=== PATIENT | male | born 1985 | race Caucasian/White ===

== ENCOUNTER 2019-05-08 18:05 | Emergency (ER) | payer OTHER, SELFPAY ==
[2019-05-08 18:07] VITALS: BP 126/78; PULSE 62; RESP 16; TEMP 36.9; O2SAT 97; BMI 28.3
--- NOTE | 2019-05-08 19:47 | CT_ITS ---
STUDY: CT ABDOMEN AND PELVIS WITHOUT CONTRAST REASON FOR EXAM: Male, 33 years old. RLQ PAIN, HERNIA RADIATION DOSAGE (If Supplied By Facility): CTDIvol = ( 13.61 ) mGy, DLP = ( 960.34 ) mGycm TECHNIQUE: Transaxial images were obtained from the dome of the diaphragm to the symphysis pubis without oral contrast, and without intravenous contrast. Sagittal and coronal images were reconstructed. Individualized dose optimization techniques were used for this CT. COMPARISON: None. FINDINGS: The visualized lung bases are unremarkable. The visualized portions of the heart are within normal limits. Normal liver. Normal gallbladder and extrahepatic biliary system. Normal spleen. Normal pancreas. Normal bilateral adrenal glands. Normal right kidney. Normal left kidney. Normal visualized stomach. Normal small intestine. Normal colon. The appendix is visualized and appears normal. Normal abdominal aorta. Normal inferior vena cava. Normal retroperitoneum. Retroaortic left renal vein. Normal urinary bladder. Multiple prominent right inguinal lymph nodes with subcutaneous stranding. The largest measures 3.1 x 1.8 cm. Normal abdominal wall. Normal osseous structures. CT/Abdomen/Pelvis W IV Cont ONLY IMPRESSION: Pathologic right inguinal lymphadenopathy and inflammatory changes. Correlate with physical exam right lower extremity. Otherwise unremarkable CT abdomen and pelvis. Electronically Signed: Finesse Ngo MD at 20:58 EST , Service support ,
[2019-05-08 20:06] LABS: Absolute Lymphocyte Count 1.75 X10^3/uL (0.83-4.51); Absolute Neutrophil Count 4.6 X10^3/uL (2.0-7.7); Basophil# 0.05 X10^3/uL; Basophil% 0.7 % (0-1); Eosinophil# 0.16 X10^3/uL; Eosinophils% 2.2 % (0-5); Hematocrit 40.7 % (40-54); Hemoglobin 13.4 g/dL (13.0-16.5); Lymphocyte # 1.75 X10^3/ul (4.0); Lymphocyte % 23.6 % (19-41); Mean Corp Hgb Conc 32.9 g/dL (32-36); Mean Corpuscular Hgb 28.5 pg (27.0-32.0); Mean Corpuscular Volume 86.4 fL (80-94); Mean Platelet Vol. 10.5 fl (6.2-12.0); Monocyte# 0.88 X10^3/uL; Monocyte% 11.9 % (0-10); NRBC Flagged by Analyzer 0 % (0-5); Neutrophil # 4.55 X10^3/uL (2.7-7.7); Neutrophil % 61.5 % (47-70); Platelet Count 225 K/mm3 (150-450); RBC Distribution Width SD 38.1 fl (35.1-43.9); Red Blood Count 4.71 M/mm3 (4.6-6.2); White Blood Count 7.4 K/mm3 (4.4-11.0)
[2019-05-08 20:22] LABS: ALB/GLOB Ratio 0.9 RATIO (0.9-2.4); AST(SGOT) 17 U/L (15-37); Alanine Aminotransfer ALT/SGPT 20 U/L (16-61); Albumin, Serum 3.6 g/dL (3.2-5.0); Alkaline Phosphatase 64 U/L (45-117); Anion Gap 3 (5-15); BUN 12 mg/dL (7-18); BUN/Creat Ratio 11.4 RATIO (10-20); Calcium,Total 8.9 mg/dL (8.5-10.1); Chloride 108 mmol/L (98-107); Creatinine, Serum 1.05 mg/dL (0.70-1.30); EST Glomerular Filtration Rate 86 mL/min (>60); Est Glom Filt Rate - Afr Amer 104 mL/min (>60); Estimated Creatinine Clearance 112.03 ml/min; Globulin 3.9 g/dL (2.2-4.2); Glucose 93 mg/dL (74-106); Protein, Total 7.5 g/dL (6.4-8.2); Sodium Level 142 mmol/L (136-145)
[2019-05-08 22:35] LABS: Bacteria 0 SEEN /hpf (None Seen); Mucous, Urine 0 SEEN /hpf (<or=2+); Red Blood Cells-Urine 0 SEEN /hpf (0-5); White Blood Cells 0 SEEN /hpf (0-5)
[2019-05-08 22:36] LABS: Color, Urine Yellow (Yellow); Glucose, Dipstick Normal (Normal); Ketone-Dipstick Negative (Negative); Leukocyte Esterase-Dipstick Negative /ul (Negative); Nitrite-Dipstick Negative (Negative); Occult Blood-Urine Negative /ul (Negative); Protein-Dipstick Negative (Negative); Urine Bilirubin Dipstick Negative (Negative); Urine Clarity Clear (Clear); Urine Urobilinogen Normal (Normal)
[2019-05-08 22:42] LABS: Squamous Epithelial Cells - UA 0-5 SEEN /hpf (0-5)
--- NOTE | 2019-05-08 22:48 | ED.DCSUM_ITS ---
History of Present Illness Chief Complaint: Abd Pain Informant: Patient Onset: Days Context: Gradual Onset Timing: Continuous Narrative: Patient is a 33-year-old male with no significant past medical history presenting with right groin pain. He states is been present for the past 4 days. He states that constant and irritating. Intermittently it is sharp and there is a hard spot that he feels bulging out. He denies any associated nausea or vomiting. He had normal bowel movements. He saw his PCP today who was concerned about a hernia and referred him to surgery. He would he call to make an appointment for tomorrow surgery wanted him to be evaluated in the ER first. Therefore patient came to the ER. Patient denies any fever chills. Denies any testicular pain. He denies any urinary symptoms. He denies any wounds or skin changes. Past Medical History - Allergies and Home Meds Allergies/Adverse Reactions: Allergies acetaminophen [From Vicodin] Allergy (Verified 05/08/19 18:07) Nausea/Vom/Diarrhea hydrocodone [From Vicodin] Allergy (Verified 05/08/19 18:07) Nausea/Vom/Diarrhea Primary Care Physician: Corey Cabrera [Primary Care Provider] - Past Medical History: None Surgical History: noncontributory Smoking Status: Never smoker Alcohol: None Drugs: None Review of Systems General: Denies: Chills, Fever, Sweats Eyes: Denies: Visual changes - bilaterally, Diplopia ENT: Denies: Rhinorrhea, Sore throat Cardiovascular: Denies: Chest pain, Palpitations Respiratory: Denies: Dyspnea, Cough, Dyspnea on exertion Gastrointestinal: Denies: Abdominal pain, Nausea, Vomiting, Diarrhea, Melena, Hematochezia Genitourinary: Reports: - - right groin pain and swelling . Denies: Dysuria, Hematuria, Frequency Musculoskeletal: Denies: Back pain, Extremity Pain Skin: Denies: Rash, Wounds Neurological: Denies: Headache, Weakness, Numbness Physical Exam Inital Vital Signs reviewed: Yes General: Well nourished, Well developed, No Acute Distress Head: Normocephalic, Atraumatic Eyes: Perrl, EOMI ENT: Moist mucous membranes, No rhinorrhea Neck: Supple, Nontender Cardiovascular: Regular rate, Regular rhythm, No murmurs Respiratory: No distress, CTA bilaterally, Chest nontender Abdomen: Soft, Nontender, Nondistended, Normal bowel sounds : - - And, no testicular pain, swelling or penile lesions noted. No direct hernia noted. Patient does have a very tender area of swelling superior and medial to the inguinal ligament. There is no associated erythema or drainage. Back: Nontender, Normal Inspection. Negative for: CVA tenderness Extremities: Nontender, No edema Skin: Normal color, No rash, - - No wounds noted on the right lower extremity specifically Neurological: Alert, Oriented x3, Cranial nerves II-XII grossly intact, Normal Strength, Normal Sensation Psychological: Normal affect, Normal Mood Diagnostic/Tx/Re-eval Clinical Impression(s) from Imaging Studies Abdomen/Pelvis CT 05/08/19 19:47 IMPRESSION: Pathologic right inguinal lymphadenopathy and inflammatory changes. Correlate with physical exam right lower extremity. Otherwise unremarkable CT abdomen and pelvis. Electronically Signed: Finesse Ngo MD at 20:58 EST , Service support , Laboratory Data 05/08/19 05/08/19 05/08/19 19:53 19:53 22:25 WBC 7.4 RBC 4.71 Hgb 13.4 Hct 40.7 MCV 86.4 MCH 28.5 MCHC 32.9 RDW Std Deviation 38.1 RDW Coeff of Gerardo 12.0 Plt Count 225 MPV 10.5 Immature Gran % (Auto) 0.100 Neut % (Auto) 61.5 Lymph % (Auto) 23.6 [place] % (Auto) 11.9 H Eos % (Auto) 2.2 Baso % (Auto) 0.7 Absolute Neuts (auto) 4.6 Absolute Lymphs (auto) 1.75 Nucleated RBC % 0 Sodium 142 Potassium 4.0 Chloride 108 H Carbon Dioxide 31.0 Anion Gap 3 L BUN 12 Creatinine 1.05 Estim Creat Clear Calc 112.03 Est GFR (MDRD) Af Amer 104 Est GFR (MDRD) Non-Af 86 BUN/Creatinine Ratio 11.4 Glucose 93 Calcium 8.9 Total Bilirubin 0.10 L AST 17 ALT 20 Alkaline Phosphatase 64 Total Protein 7.5 Albumin 3.6 Globulin 3.9 Albumin/Globulin Ratio 0.9 Urine Color Yellow Urine Clarity Clear Urine pH 8.0 Ur Specific [place] 1.010 Urine Protein Negative Urine Glucose (UA) Normal Urine Ketones Negative Urine Occult Blood Negative Urine Nitrite Negative Urine Bilirubin Negative Urine Urobilinogen Normal Ur Leukocyte Esterase Negative Urine RBC 0 SEEN Urine WBC 0 SEEN Ur Squamous Epith Cells 0-5 SEEN Urine Bacteria 0 SEEN Urine Mucus 0 SEEN - Medical Decision Making Patient is evaluated for concern of hernia secondary to pain and swelling of his right groin area. Blood work is largely normal including CBC, urinalysis and BMP. CT of the abdomen pelvis with IV contrast does not show a hernia but does show pathologic adenopathy in the area of his tenderness. I did discuss the case with surgery on-call, Dr. Camacho who feels that it is nothing surgical at this time. He will be started on Keflex and NSAIDs instructed to follow-up with his primary care doctor. Patient is counseled that should this persist he might eventually require a biopsy. Patient not have any wounds or cellulitic changes of the right lower extremity. He is not have any symptoms consistent with an STI. Patient is counseled that this could be inflammatory, viral, bacterial or malignant. He is counseled the importance of outpatient follow-up with his PCP. He is given Toradol and first dose of Keflex in the emergency room. Patient is counseled on signs and symptoms requiring return to the emergency room. Patient verbalizes agreement and understand this plan. Patient discharged home in stable and improved condition. ED Disposition - Plan for ED Patient: Disposition: Home or Assisted Living Diagnosis: Inguinal lymphadenopathy Instructions: Lymphangitis Prescriptions: Cephalexin [Keflex] 500 mg PO Q8 #21 cap Prescription Printed Ibuprofen [Motrin] 600 mg PO Q6H PRN PRN #20 tab PRN Reason: Pain/Inflammation Prescription Printed Referrals: Corey Cabrera [Primary Care Provider] - Additional Instructions: You do not have a hernia. Your CT shows an inflamed lymph node. This appears to be the cause of your pain. You were placed on antibiotics to see if this helps as well as anti-inflammatories. Please return the emergency room if you develop fever, worsening swelling of your leg or significant pain. Please follow-up with your primary care doctor. If the antibiotics do not help with the swelling does not go down you might require a biopsy.
[2019-05-08] MEDS: Cephalexin 250 MG Capsule 500 MG PO (23:07)
[2019-05-08] MEDS: Ketorolac 15 MG/ML Vial IV (23:07)
[2019-05-08 23:13] VITALS: BP 134/82; RESP 16
== END 2019-05-08 23:15 | disposition home or self-care (01) ==
PROVIDERS: Emergency Provider Emergency Medicine; Family Provider Internal Medicine; PCP Internal Medicine
DX: R59.9 Enlarged lymph nodes, unspecified (principal); R10.31 Right lower quadrant pain; Z88.5 Allergy status to narcotic agent
CPT/HCPCS: 74177; 80053; 81001; 85025; 96374; 99283; Q9967; A4216

== ENCOUNTER 2020-03-15 18:37 | Emergency (ER) | payer OTHER, SELFPAY ==
[2020-03-15 18:39] VITALS: BP 133/86; PULSE 70; RESP 15; TEMP 36.3; O2SAT 99; BMI 28.3
--- NOTE | 2020-03-15 19:28 | ED.DCSUM_ITS ---
History of Present Illness Chief Complaint: Dizziness Informant: Patient Onset: Today Narrative: Patient presents with sudden dizziness with room spinning 3 PM after awakening. He works third shift. Diagnosed with Covid 15 days ago with just a cough and sore throat at that time. He had myalgias. Symptoms all recovered. No headache. No history of similar. No past medical history. Nausea without vomiting. Symptoms worse with head turning. Past Medical History - Allergies and Home Meds Allergies/Adverse Reactions: Allergies acetaminophen [From Vicodin] Allergy (Verified 03/15/20 18:39) Nausea/Vom/Diarrhea hydrocodone [From Vicodin] Allergy (Verified 03/15/20 18:39) Nausea/Vom/Diarrhea Primary Care Physician: Corey Cabrera MD [Primary Care Provider] - Past Medical History: - - Covid 19 infection Surgical History: noncontributory Smoking Status: Never smoker Review of Systems General: Denies: Chills, Fever, Sweats Eyes: Denies: Visual changes - bilaterally, Diplopia ENT: Denies: Rhinorrhea, Sore throat Cardiovascular: Denies: Chest pain, Palpitations Respiratory: Denies: Dyspnea, Cough, Dyspnea on exertion Gastrointestinal: Denies: Abdominal pain, Nausea, Vomiting, Diarrhea, Melena, Hematochezia Genitourinary: Denies: Dysuria, Hematuria, Frequency Musculoskeletal: Denies: Back pain, Extremity Pain Skin: Denies: Rash, Wounds Neurological: Reports: - - Vertigo. Denies: Headache, Weakness, Numbness Physical Exam Vital Signs/Narrative: Vital Signs Temp Pulse Resp BP Pulse Ox 03/15/20 18:39 97.4 F L 70 15 133/86 H 99 Inital Vital Signs reviewed: Yes General: Well nourished, Well developed, No Acute Distress Head: Normocephalic, Atraumatic Eyes: Perrl, EOMI, - - no nystagmus. ENT: Moist mucous membranes, No rhinorrhea Neck: Supple, Nontender Cardiovascular: Regular rate, Regular rhythm, No murmurs Respiratory: No distress, CTA bilaterally, Chest nontender Abdomen: Soft, Nontender, Nondistended, Normal bowel sounds Back: Nontender, Normal Inspection Extremities: Nontender, No edema Skin: Normal color, No rash Neurological: Alert, Oriented x3, Cranial nerves II-XII grossly intact, Normal Strength, Normal Sensation Psychological: Normal affect, Normal Mood Diagnostic/Tx/Re-eval - Medical Decision Making Clinical Impression(s) from Imaging Studies Brain CT 03/15/20 19:30 IMPRESSION: No demonstrated acute or significant intracranial process Electronically Signed: Roque Millard MD at 20:40 EST , Service support , Abnormal Lab Results 03/15/20 03/15/20 03/15/20 19:48 19:48 19:48 WBC 10.4 RBC 5.07 Hgb 14.3 Hct 44.1 MCV 87.0 MCH 28.2 MCHC 32.4 RDW Std Deviation 39.1 RDW Coeff of Gerardo 12.5 Plt Count 259 MPV 10.6 Immature Gran % (Auto) 0.400 Neut % (Auto) 82.7 H Lymph % (Auto) 10.6 L [place] % (Auto) 5.6 Eos % (Auto) 0.3 Baso % (Auto) 0.4 Absolute Neuts (auto) 8.6 H Absolute Lymphs (auto) 1.10 Nucleated RBC % 0 PT 13.3 INR 1.1 APTT 26.6 Sodium 141 Potassium 3.9 Chloride 110 H Carbon Dioxide 29.0 Anion Gap 2 L BUN 13 Creatinine 1.03 Estim Creat Clear Calc 113.13 Est GFR (MDRD) Af Amer 105 Est GFR (MDRD) Non-Af 87 BUN/Creatinine Ratio 12.6 Glucose 96 Calcium 8.8 Patient with acute vertigo symptoms. There is no focal neurologic deficits. There is no nystagmus. With patient's recent Covid infection work-up initiated. He is recovered from Covid. CT head negative labs are stable was treated with IV Phenergan with improvement of symptoms. He is ambulating department with no return of symptoms. Prescription for meclizine to use as needed with close outpatient follow-up, signs and symptom discussed to return. All questions were answered. ED Disposition - Plan for ED Patient: Disposition: Home or Assisted Living Diagnosis: Acute epidemic vertigo Instructions: ED Vertigo Unspecified Prescriptions: Meclizine HCl [Antivert] 25 mg PO 4X/DAY PRN PRN #20 tab PRN Reason: Dizziness Transmission Status: Pending to [facility] Referrals: Corey Cabrera MD [Primary Care Provider] - 3-5 Days
--- NOTE | 2020-03-15 19:30 | CT_ITS ---
STUDY: CT BRAIN WITHOUT CONTRAST REASON FOR EXAM: Male, 34 years old. DIZZINESS, COVID POSITIVE WEEKS AGO. RADIATION DOSAGE (If Supplied By Facility): CTDIvol = ( 44.99 ) mGy, DLP = ( 880.47 ) mGycm TECHNIQUE: Transaxial CT imaging of the brain was performed without administration of intravenous contrast material. Individualized dose optimization techniques were used for this CT. COMPARISON: None. FINDINGS: Normal soft tissue structures. Normal calvarium. Normal size ventricles and extra-axial spaces for the patient''s age. Normal white matter tracts of the cerebral hemispheres. Normal basal ganglia and thalami. Normal brainstem. Normal cerebellum. There is no intracranial hemorrhage. There are no findings of an acute ischemic infarction. Normal visualized paranasal sinuses. CT/Brain/Head without Contrast IMPRESSION: No demonstrated acute or significant intracranial process Electronically Signed: Roque Millard MD at 20:40 EST , Service support ,
[2020-03-15 20:00] LABS: Absolute Neutrophil Count 8.6 X10^3/uL (2.0-7.7); Basophil# 0.04 X10^3/uL; Basophil% 0.4 % (0-1); Eosinophil# 0.03 X10^3/uL; Eosinophils% 0.3 % (0-5); Hematocrit 44.1 % (40-54); Hemoglobin 14.3 g/dL (13.0-16.5); Lymphocyte % 10.6 % (19-41); Mean Corp Hgb Conc 32.4 g/dL (32-36); Mean Corpuscular Hgb 28.2 pg (27.0-32.0); Mean Platelet Vol. 10.6 fl (6.2-12.0); Monocyte# 0.58 X10^3/uL; Monocyte% 5.6 % (0-10); NRBC Flagged by Analyzer 0 % (0-5); Neutrophil # 8.63 X10^3/uL (2.7-7.7); Neutrophil % 82.7 % (47-70); Platelet Count 259 K/mm3 (150-450); RBC Distribution Width CV 12.5 % (11.6-14.6); RBC Distribution Width SD 39.1 fl (35.1-43.9); Red Blood Count 5.07 M/mm3 (4.6-6.2); White Blood Count 10.4 K/mm3 (4.4-11.0)
[2020-03-15] MEDS: proMETHazine 25 MG/ML Syringe 12.5 MG IV (20:01)
[2020-03-15 20:09] LABS: International Normalized Ratio 1.1; Partial Thromboplast Time 26.6 Seconds (24.1-36.2); Prothrombin Time (Protime)PT. 13.3 SECONDS (11.7-14.9)
[2020-03-15 20:14] LABS: Anion Gap 2 (5-15); BUN 13 mg/dL (7-18); BUN/Creat Ratio 12.6 RATIO (10-20); Calcium,Total 8.8 mg/dL (8.5-10.1); Chloride 110 mmol/L (98-107); Creatinine, Serum 1.03 mg/dL (0.70-1.30); EST Glomerular Filtration Rate 87 mL/min (>60); Est Glom Filt Rate - Afr Amer 105 mL/min (>60); Estimated Creatinine Clearance 113.13 ml/min; Glucose 96 mg/dL (74-106); Potassium 3.9 mmol/L (3.5-5.1); Sodium Level 141 mmol/L (136-145)
[2020-03-15 21:36] VITALS: BP 128/79; PULSE 74; RESP 16; O2SAT 98
[2020-03-15 22:09] VITALS: RESP 16
== END 2020-03-15 22:09 | disposition home or self-care (01) ==
PROVIDERS: Emergency Provider Emergency Medicine; PCP Internal Medicine
DX: R42 Dizziness and giddiness (principal); Z86.19 Personal history of other infectious and parasitic diseases
CPT/HCPCS: 70450; 80048; 85025; 85610; 85730; 96374; 99283; A4216

== ENCOUNTER → 2024-08-15 | Outpatient (CLI) | payer OTHER, SELFPAY | END | disposition home or self-care (01) | PROVIDERS: PCP Internal Medicine; Referring Provider Chiropractor; Visit Provider Chiropractor | DX: J45.909 Unspecified asthma, uncomplicated (principal) | CPT/HCPCS: 94060; 94726; 94729 ==